=== PATIENT | male | born 1965 | race African-American/Black ===

== ENCOUNTER 2017-06-14 16:22 | Emergency (ER) | payer SELFPAY ==
[~2017-06-14] VITALS: Ht 182.9 cm; Wt 95.5 kg
[2017-06-14 17:08] VITALS: BP 148/68
== END 2017-06-14 17:46 | disposition home or self-care (01) ==
LOC: EMS 16:26
DX: S39.012A Strain of muscle, fascia and tendon of lower back, initial encounter (principal); V49.50XA Passenger injured in collision with unspecified motor vehicles in traffic accident, initial encounter; Y93.89 Activity, other specified; Y92.411 Interstate highway as the place of occurrence of the external cause; Y99.8 Other external cause status
CPT/HCPCS: 99283

== ENCOUNTER 2022-01-16 09:24 | Emergency (ER) | payer MEDICAID ==
[~2022-01-16] VITALS: Ht 182.9 cm; Wt 84.1 kg
[2022-01-16] MEDS ORDERED: HYDROCODONE/ACETAMINOPHEN 5-325 MG TABLET PO ONE (11:15)
[2022-01-16 12:42] VITALS: BP 138/87
[2022-01-16] MEDS ORDERED: HYDR-4723 PO (12:58)
== END 2022-01-16 13:07 | disposition home or self-care (01) ==
LOC: EMS 09:24
DX: S22.41XA Multiple fractures of ribs, right side, initial encounter for closed fracture (principal); W01.0XXA Fall on same level from slipping, tripping and stumbling without subsequent striking against object, initial encounter; Y93.89 Activity, other specified; Y92.89 Other specified places as the place of occurrence of the external cause; Y99.8 Other external cause status
CPT/HCPCS: 71101; 99283

== ENCOUNTER 2022-03-06 20:34 | Emergency (ER) | payer MEDICAID ==
[~2022-03-06] VITALS: Ht 175.3 cm; Wt 79.0 kg
[~2022-03-06 20:34] MED LIST: HYDR-4723 PO
[2022-03-06] MEDS ORDERED: LIDOCAINE 1% 10 ML VIAL ID ONE (21:30)
[2022-03-06 22:00] VITALS: BP 132/81
== END 2022-03-07 01:12 | disposition home or self-care (01) ==
LOC: EMS 20:34
DX: S61.411A Laceration without foreign body of right hand, initial encounter (principal); W01.0XXA Fall on same level from slipping, tripping and stumbling without subsequent striking against object, initial encounter; Y93.89 Activity, other specified; Y92.89 Other specified places as the place of occurrence of the external cause; Y99.8 Other external cause status
CPT/HCPCS: 12002; 99282; J3490

== ENCOUNTER 2023-12-12 14:04 | Emergency (ER) | payer MEDICAID ==
[~2023-12-12] VITALS: Ht 182.9 cm; Wt 81.8 kg
[2023-12-12 14:19] VITALS: TEMP 97.8
[2023-12-12 14:52] LABS: BASOPHILS % (AUTO) 0.4 % (0.0-2.0); EOSINOPHILS % (AUTO) 0 % (1.0-6.0); HEMATOCRIT 40.1 % (41-53); HEMOGLOBIN 13.7 g/dL (13.5-17.5); LYMPHOCYTES # (AUTO) 1.5 K/uL (1.0-4.8); MEAN CORPUSCULAR HEMOGLOBIN 34.7 pg (26.0-34.0); MEAN CORPUSCULAR HGB CONC 34.3 G/dL (31.0-37.0); MEAN CORPUSCULAR VOLUME 101 fL (80-100); MONOCYTES # (AUTO) 0.6 K/uL (0.1-1.0); NEUTROPHILS % (AUTO) 74.6 % (40.0-70.0); PLATELET COUNT (AUTO) 277 K/uL (150-450); RED BLOOD CELL COUNT(AUTO) 3.96 MIL/uL (4.50-5.90); RED CELL DISTRIBUTION WIDTH 14.6 % (11.5-14.5)
[2023-12-12 15:04] LABS: ANION GAP 12 mmol/L (8-16); CALCIUM, TOTAL 8.7 mg/dL (8.8-10.5); CARBON DIOXIDE 26 mmol/L (22-29); CHLORIDE 104 mmol/L (98-107); CREATININE 0.72 mg/dL (0.60-1.30); GLOMERULAR FILTR. RATE CALC > 60 mL/min (>60); GLUCOSE,RANDOM 94 mg/dL (70-110); POTASSIUM 3.4 mmol/L (3.5-5.1); SODIUM SERUM 142 mmol/L (136-145); UREA NITROGEN, BLOOD 9 mg/dL (7-18)
[2023-12-12 15:05] LABS: ALCOHOL, BLOOD (SERUM) 9 mg/dL (0-10)
[2023-12-12 15:43] LABS: RBC MORPHOLOGY COMMENT ABNORMAL RBC MORPH
[2023-12-12] MEDS ORDERED: HYDR-4723 PO (16:53)
[2023-12-12] MEDS: IBUPROFEN 600 MG TABLET PO ONE (16:53)
[2023-12-12] MEDS ORDERED: IBUP-1554 PO (16:53)
[2023-12-12] MEDS: ACETAMINOPHEN 500 MG TABLET PO ONE (16:53)
[2023-12-12 17:27] VITALS: BP 154/91; PULSE 84; RESP 18
== END 2023-12-12 17:37 | disposition home or self-care (01) ==
LOC: EMS 14:04
DX: S39.012A Strain of muscle, fascia and tendon of lower back, initial encounter (principal); S86.912A Strain of unspecified muscle(s) and tendon(s) at lower leg level, left leg, initial encounter; S86.911A Strain of unspecified muscle(s) and tendon(s) at lower leg level, right leg, initial encounter; X50.1XXA Overexertion from prolonged static or awkward postures, initial encounter; Y93.67 Activity, basketball; Y92.89 Other specified places as the place of occurrence of the external cause; Y99.8 Other external cause status
CPT/HCPCS: 99284; 80048; 85025; 36415; 72100; 73562 ×2; 73630; G0480

== ENCOUNTER 2025-09-09 06:12 | Emergency (ER) | payer MEDICAID ==
[~2025-09-09] VITALS: Ht 180.3 cm; Wt 83.2 kg
[~2025-09-09 06:12] MED LIST changes: +CHLO5CAP4 PO; +HYDR-4062 PO; -HYDR-4723 PO; +IBUP-1554 PO
[2025-09-09 06:16] VITALS: BP 154/79; PULSE 68; RESP 14; TEMP 98.8; O2SAT 100
[2025-09-09] MEDS ORDERED: PENI500T2 PO (06:54)
[2025-09-09] MEDS ORDERED: ACET-2080 PO (06:54)
[2025-09-09] MEDS: CEPHALEXIN MONOHYDRATE 500 MG CAPSULE PO ONE (07:18)
[2025-09-09] MEDS: ACETAMINOPHEN/CODEINE 300-30 MG TABLET PO ONE (07:19)
[2025-09-09] MEDS: KETOROLAC TROMETHAMINE 60 MG/2 ML VIAL IM ONE (07:19)
== END 2025-09-09 07:49 | disposition home or self-care (01) ==
LOC: EMS 06:12
DX: K04.7 Periapical abscess without sinus (principal); F17.210 Nicotine dependence, cigarettes, uncomplicated; F12.90 Cannabis use, unspecified, uncomplicated; F10.90 Alcohol use, unspecified, uncomplicated; Z79.899 Other long term (current) drug therapy; Y90.9 Presence of alcohol in blood, level not specified
CPT/HCPCS: 99283; 96372; J1885